=== PATIENT | male | born 1965 | race Caucasian/White ===

== ENCOUNTER 2020-06-30 18:26 | Inpatient (IN) | payer MEDICAID, OTHER ==
[~2020-06-30] VITALS: Ht 175.3 cm; Wt 64.5 kg
[~2020-06-30 18:26] MED LIST: FOLI-130 PO; LISI-661 PO; LORA10TA7 PO; LURA40TA2 PO; MULT-1238 PO; THIAMINE HCL100 MG PO
[2020-06-30] MEDS ORDERED: HALOPERIDOL 5 MG TABLET PO ONE (20:00)
[2020-06-30] MEDS ORDERED: LORazepam 2 MG TABLET PO ONE (20:00)
[2020-06-30 20:14] LABS: ANION GAP 11 mmol/L (8-16); BASOPHILS % (AUTO) 0.7 % (0.0-2.0); CALCIUM, TOTAL 8.9 mg/dL (8.8-10.5); CARBON DIOXIDE 25 mmol/L (22-29); CHLORIDE 102 mmol/L (98-107); CREATININE 0.88 mg/dL (0.60-1.30); EOSINOPHILS % (AUTO) 0.5 % (1.0-6.0); GLOMERULAR FILTR. RATE CALC > 60 mL/min (>60); GLUCOSE,RANDOM 103 mg/dL (70-110); HEMATOCRIT 43.8 % (41-53); HEMOGLOBIN 14.5 g/dL (13.5-17.5); LYMPHOCYTES % (AUTO) 24.8 % (22.0-44.0); MEAN CORPUSCULAR HEMOGLOBIN 30.4 pg (26.0-34.0); MEAN CORPUSCULAR VOLUME 92 fL (80-100); MONOCYTES # (AUTO) 1.1 K/uL (0.1-1.0); MONOCYTES % (AUTO) 13.9 % (2.0-9.0); NEUTROPHILS # (AUTO) 4.9 K/uL (1.8-7.7); NEUTROPHILS % (AUTO) 60.1 % (40.0-70.0); PLATELET COUNT (AUTO) 273 K/uL (150-450); RED BLOOD CELL COUNT(AUTO) 4.76 MIL/uL (4.50-5.90); RED CELL DISTRIBUTION WIDTH 14.2 % (11.5-14.5); SODIUM SERUM 138 mmol/L (136-145); UREA NITROGEN, BLOOD 18 mg/dL (7-18)
[2020-06-30 20:21] LABS: ALANINE AMINOTRANSFERASE 50 U/L (12-78); ALBUMIN 3.9 g/dL (3.4-5.0); ALKALINE PHOSPHATASE 63 U/L (46-116); ASPARTATE AMINOTRANSFERASE 36 U/L (15-37); BILIRUBIN,TOTAL 0.5 mg/dL (0.1-1.0); TOTAL PROTEIN, SERUM 6.8 g/dL (6.4-8.2)
[2020-06-30 21:07] LABS: COVID AG,FIA SOURCE NASOPHARYNGEAL
[2020-06-30 21:20] LABS: AMPHET/METH SCREEN,URINE POSITIVE (NEGATIVE); BARBITURATE SCREEN, URINE NEGATIVE (NEGATIVE); BENZODIAZEPINES SCREEN,URINE NEGATIVE (NEGATIVE); CANNABINOID SCREEN,URINE POSITIVE (NEGATIVE); COCAINE SCREEN,URINE NEGATIVE (NEGATIVE); METHADONE SCREEN, URINE NEGATIVE (NEGATIVE); OPIATE SCREEN,URINE NEGATIVE (NEGATIVE)
[2020-06-30 21:22] LABS: PHENCYCLIDINE SCREEN,URINE NEGATIVE (NEGATIVE)
[2020-06-30] MEDS ORDERED: ZOLPIDEM TARTRATE 10 MG TABLET PO PRN (22:00)
[2020-06-30] MEDS ORDERED: LORazepam 2 MG TABLET PO PRN (22:00)
[2020-06-30] MEDS ORDERED: HALOPERIDOL 5 MG TABLET PO PRN (22:00)
[2020-07-01 02:15] VITALS: BP 150/90
[2020-07-01] MEDS ORDERED: PNEUMOCOCCAL VACCINE POLYVALENT 0.5 ML VIAL [PPSV23] IM ONE (03:30)
[2020-07-01] MEDS ORDERED: INFLUENZA VIRUS VACCINE QVS 2020-21 (6MO+)/PF 60 MCG/0.5 ML SYRINGE IM ONE (03:30)
[2020-07-01 08:05] VITALS: BP 142/100
[2020-07-01] MEDS ORDERED: BACITRACIN 28 GM OINTMENT TP PRN (09:00)
[2020-07-01] MEDS ORDERED: DOCUSATE SODIUM 100 MG CAPSULE PO PRN (09:00)
[2020-07-01] MEDS ORDERED: LOPERAMIDE HCL 2 MG CAPSULE PO PRN (09:00)
[2020-07-01] MEDS ORDERED: ALBUTEROL SULFATE HFA 90 MCG/PUFF 8 GM INHALER IH PRN (09:00)
[2020-07-01] MEDS ORDERED: IBUPROFEN 600 MG TABLET PO PRN (09:00)
[2020-07-01] MEDS ORDERED: MAG HYDROX/AL HYDROX/SIMETH ES 30 ML SUSPENSION UDCUP PO PRN (09:00)
[2020-07-01] MEDS ORDERED: MAGNESIUM HYDROXIDE SUSPENSION 30 ML UDCUP PO PRN (09:00)
[2020-07-01] MEDS ORDERED: BENZOCAINE/MENTHOL LOZENGE PO PRN (09:00)
[2020-07-01] MEDS ORDERED: ONDANSETRON HCL 4 MG TABLET PO PRN (09:00)
[2020-07-01] MEDS ORDERED: OMEPRAZOLE 20 MG CAPSULE PO PRN (09:00)
[2020-07-01] MEDS ORDERED: PETROLATUM,WHITE 28 GM JELLY TP PRN (09:00)
[2020-07-01] MEDS ORDERED: POTASSIUM CHLORIDE 20 MEQ ER TABLET PO ONE (09:00)
[2020-07-01] MEDS: LISINOPRIL 10 MG TABLET PO SCH (09:00)
[2020-07-01] MEDS ORDERED: ACETAMINOPHEN 325 MG TABLET PO PRN (09:00)
[2020-07-01] MEDS: CHLORTHALIDONE 25 MG TABLET PO SCH (09:00)
[2020-07-01] MEDS ORDERED: CloNIDine HCL 0.1 MG TABLET PO PRN (09:00)
[2020-07-01 16:11] VITALS: BP 118/74
[2020-07-01] MEDS: RisperiDONE 2 MG TABLET PO SCH (17:14)
[2020-07-02 00:29] VITALS: BP 108/62
[2020-07-02 08:24] VITALS: BP 120/75
[2020-07-02] MEDS: RisperiDONE 2 MG TABLET PO SCH ×2 (08:25→16:33)
[2020-07-02] MEDS: LISINOPRIL 10 MG TABLET PO SCH (08:25)
[2020-07-02] MEDS: CHLORTHALIDONE 25 MG TABLET PO SCH (08:25)
[2020-07-02 16:03] VITALS: BP 107/75
[2020-07-03 05:59] VITALS: BP 108/75
[2020-07-03] MEDS: RisperiDONE 2 MG TABLET PO SCH (09:00)
[2020-07-03] MEDS: CHLORTHALIDONE 25 MG TABLET PO SCH (09:00)
[2020-07-03] MEDS: LISINOPRIL 10 MG TABLET PO SCH (09:00)
[2020-07-03 09:08] VITALS: BP 117/71
[2020-07-03 16:10] VITALS: BP 137/90
[2020-07-03] MEDS ORDERED: RISP2TAB76 PO (17:55)
[2020-07-03] MEDS ORDERED: CHLO25TA3 PO (17:56)
== END 2020-07-03 18:31 | disposition home or self-care (01) | DRG 750 ==
LOC: EMS 18:26 → B2S 21:59
PROVIDERS: ADMIT Psychiatry & Neurology Psychiatry; ATTEND Psychiatry & Neurology Psychiatry
DX: F20.0 Paranoid schizophrenia (principal); E78.00 Pure hypercholesterolemia, unspecified; I10 Essential (primary) hypertension; J45.909 Unspecified asthma, uncomplicated; R45.850 Homicidal ideations; M54.5 Low back pain; G89.29 Other chronic pain; E87.6 Hypokalemia; G47.00 Insomnia, unspecified; K59.00 Constipation, unspecified; F41.9 Anxiety disorder, unspecified; F19.10 Other psychoactive substance abuse, uncomplicated; Z72.0 Tobacco use; Z79.899 Other long term (current) drug therapy; Z03.818 Encounter for observation for suspected exposure to other biological agents ruled out
CPT/HCPCS: 87081; 87426; G0480

== ENCOUNTER 2021-03-11 22:01 | Emergency (ER) | payer MEDICAID, OTHER ==
[~2021-03-11] VITALS: Ht 177.8 cm; Wt 68.2 kg
[~2021-03-11 22:01] MED LIST changes: +CHLO25TA3 PO; -FOLI-130 PO; -LISI-661 PO; +LISI-893 PO; -LORA10TA7 PO; -LURA40TA2 PO; -MULT-1238 PO; +RISP2TAB76 PO; -THIAMINE HCL100 MG PO
[2021-03-12] MEDS ORDERED: ZOLPIDEM TARTRATE 10 MG TABLET PO PRN (01:00)
[2021-03-12] MEDS ORDERED: HALOPERIDOL 5 MG TABLET PO PRN (01:00)
[2021-03-12] MEDS ORDERED: LORazepam 2 MG TABLET PO PRN (01:00)
[2021-03-13 08:48] LABS: COVID AG,FIA SOURCE NASOPHARYNGEAL
[2021-03-13 09:37] LABS: APPEARANCE,URINE CLEAR (CLEAR); BILIRUBIN,URINE NEGATIVE (NEGATIVE); GLUCOSE, URINE (UA) NEGATIVE (NEGATIVE); KETONES,URINE 15 mg/dL (NEGATIVE); LEUKOCYTE ESTERASE ,URINE NEGATIVE (NEGATIVE); NITRATE,URINE NEGATIVE (NEGATIVE); OCCULT BLOOD,URINE NEGATIVE (NEGATIVE); PROTEIN,URINE NEGATIVE (NEGATIVE); UROBILINOGEN,URINE 0.2 mg/dL (<=1.0)
[2021-03-13 16:05] VITALS: BP 158/90
== END 2021-03-13 18:56 | disposition home or self-care (01) ==
LOC: EMS 22:25
DX: F20.0 Paranoid schizophrenia (principal); J45.909 Unspecified asthma, uncomplicated; E78.00 Pure hypercholesterolemia, unspecified; I10 Essential (primary) hypertension; Z20.822 Contact with and (suspected) exposure to COVID-19; Z79.899 Other long term (current) drug therapy
CPT/HCPCS: 81003; 99285